=== PATIENT | male | born 1970 | race Caucasian/White ===

== ENCOUNTER 2016-11-15 08:30 | Observation (INO) | payer MEDICARE ==
[~2016-11-15] VITALS: Ht 170.2 cm; Wt 82.8 kg
[2016-11-25] MEDS ORDERED: LISI2.5T3 PO (13:36)
[2016-11-25] MEDS ORDERED: LEVO125T4 PO (13:36)
[2016-11-25] MEDS ORDERED: SIMV5TAB3 PO (13:36)
[2016-11-25] MEDS ORDERED: RISP2TAB2 PO ×2 (13:55)
[2016-11-29] MEDS ORDERED: METOPROLOL TARTRATE 25 MG TAB PO PRN (06:45)
[2016-11-29] MEDS ORDERED: INSULIN HUMAN REGULAR 1,000 UNITS/10 ML VIAL SQ PRN (06:45)
[2016-11-29] MEDS ORDERED: LACTATED RINGER'S 1000 ML IV PRN (06:45)
[2016-11-29] MEDS ORDERED: SODIUM CHLORID 0.9% 500 ML IV PRN (06:45)
[2016-11-29] MEDS ORDERED: CHLORHEXIDINE GLUCONATE 2 % 1 PACK (2 CLOTHS) TOPICAL PRN (06:45)
[2016-11-29] MEDS ORDERED: POVIDONE IODINE 5% (ANTISEPSIS KIT) 4 APPLICATIONS EACH NARE PRN (06:45)
[2016-11-29] MEDS ORDERED: ceFAZolin 2 GM PREMIX 50 ML IV SCH (06:45)
[2016-11-29] MEDS ORDERED: LISI-515 PO (07:07)
[2016-11-29] MEDS ORDERED: PRAV40TA2 PO (07:07)
[2016-11-29 07:09] VITALS: BP 134/93; PULSE 92; RESP 18; TEMP 97.6; O2SAT 97
[2016-11-29] MEDS ORDERED: BACITRACIN TOP OINT 15 GM TUBE ONE (07:28)
[2016-11-29] MEDS ORDERED: LIDOCAINE 1%/EPINEPHrine 1:100,000 SOLN 20 ML VIAL ONE (07:28)
[2016-11-29] MEDS ORDERED: SODIUM BICARBONATE 8.4% INJ 50 ML ONE (07:29)
[2016-11-29] MEDS ORDERED: LIDOCAINE HCL 2% 50 ML VIAL ONE (07:45)
[2016-11-29 07:48] LABS: AUTOMATED NEUTROPHIL # 4.8 TH/MM3 (1.8-7.7); BASOPHIL % 0.3 % (0.0-2.0); EOSINOPHIL # 0.3 TH/MM3 (0-0.4); EOSINOPHIL % 4.8 % (0.0-4.0); HEMATOCRIT 41.4 % (39.0-51.0); HEMO FLAGS DIFF FINAL; LYMPHOCYTE # 0.7 TH/MM3 (1.0-4.8); MEAN CORPUSCULAR HEMOGLOBIN 30.5 PG (27.0-34.0); MONO % 11.2 % (0.0-8.0); NEUT % 73.7 % (16.0-70.0); PLATELET COUNT 244 TH/MM3 (150-450); RED BLOOD COUNT 4.76 MIL/MM3 (4.50-5.90); RED CELL DISTRIBUTION WIDTH 12.6 % (11.6-17.2); WHITE BLOOD COUNT 6.5 TH/MM3 (4.0-11.0)
[2016-11-29 08:15] LABS: BICARBONATE 26.8 MEQ/L (21.0-32.0)
[2016-11-29 08:21] LABS: POTASSIUM 4.4 MEQ/L (3.5-5.1)
[2016-11-29] MEDS ORDERED: BUPIVACAINE/EPINEPHRINE 0.25% 50 ML VIAL INFIL ONE (08:55)
[2016-11-29] MEDS ORDERED: Post-op Orders (for Pharmacy) MISC XX ONE (10:31)
[2016-11-29] MEDS ORDERED: DO NOT ADM ANY ANTICOAGULANT DRUGS PRN (10:36)
[2016-11-29] MEDS ORDERED: MIDAZOLAM HCL 2 MG/2 ML VIAL ONE (10:40)
[2016-11-29] MEDS ORDERED: fentaNYL CITRATE 250 MCG/5 ML AMP ONE (10:41)
[2016-11-29] MEDS ORDERED: *RESP: ALBUTEROL 2.5 MG/3 ML NEB (PRN) PERIprocedural Use ONLY NEB ONE (11:24)
[2016-11-29] MEDS ORDERED: SODIUM CHLORIDE 0.9% FLUSH 10 ML FLUSH IV FLUSH PRN (12:30)
[2016-11-29] MEDS ORDERED: SODIUM CHLORIDE 0.9% FLUSH 10 ML FLUSH IV FLUSH SCH (12:30)
[2016-11-29] MEDS ORDERED: ACETAMINOPHEN/HYDROcodone 325 MG/5 MG TAB PO PRN (12:30)
[2016-11-29] MEDS ORDERED: MORPHINE SULFATE 4 MG/ML INJ IV PRN (12:30)
[2016-11-29] MEDS ORDERED: ONDANSETRON HCL 4 MG/2 ML VIAL IV PRN (12:30)
[2016-11-29] MEDS ORDERED: IBUPROFEN 600 MG TAB PO PRN (12:30)
[2016-11-29] MEDS ORDERED: PROPOFOL 200 MG/20 ML AMP IV ONE (14:44)
[2016-11-29] MEDS ORDERED: ePHEDrine/NS 25 MG/5 ML SYR IV ONE (14:44)
[2016-11-29] MEDS ORDERED: ONDANSETRON HCL 4 MG/2 ML VIAL IV PUSH ONE (14:45)
[2016-11-29] MEDS ORDERED: PHENYLEPH/NS 1000 MCG/10 ML SYR IV ONE (14:45)
[2016-11-29] MEDS ORDERED: NEOSTIGMINE METHYLSULFATE 10 MG/10 ML VIAL IV PUSH ONE (14:45)
--- NOTE | 2016-11-29 15:00 | EKG ---
Date Performed: 11/29/2016 Time Performed: 07:07:28 PTAGE: 46 years EKG: Sinus rhythm NORMAL ECG PREVIOUS TRACING : 10/01/2010 06.50 DOCTOR: Barbara Oleary Interpretating Date/Time 11/29/2016 14:55:51
[2016-11-29 17:00] VITALS: BP 148/89; PULSE 133; RESP 19; TEMP 96.6; O2SAT 92
[2016-11-29 20:00] VITALS: BP 125/67; PULSE 117; RESP 17; TEMP 97.9; O2SAT 93
[2016-11-30] VITALS: BP 132/82; PULSE 106; RESP 18; TEMP 97.3; O2SAT 93
[2016-11-30 04:00] VITALS: BP 128/74; PULSE 97; RESP 18; TEMP 97; O2SAT 97
[2016-11-30 08:00] VITALS: BP 135/83; PULSE 97; RESP 16; TEMP 95.3; O2SAT 94
[2016-11-30 11:58] VITALS: BP 141/87; PULSE 100; RESP 17; TEMP 95.7; O2SAT 93
--- NOTE | 2016-12-01 17:16 | MP ---
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 Sisi Cárdenas BRICKMASON SUPERVISOR Dr. Carlos Vera MD COMPLICATIONS None BLOOD LOSS Less than 10 mL FINDINGS One significantly enlarged pathologic appearing lymph node in level II lymph node basin. All palpable lymph nodes removed from level two and three. INDICATIONS FOR PROCEDURE The patient is a 46-year-old male with history of well differentiated thyroid cancer with multiple distant and regional recurrences. The patient undergoing continued treatment by radiation oncology, however, due to a large bulky lymph node with metastasis in the left cervical area the referral for resection was indicated due to the local control as well as to debulk the cancer for planned radiation. Risks, benefits, alternatives to selective left cervical lymphadenectomy were discussed with the patient in detail as well as the patient's power of real estate attorney. Medical decision making prior to the procedure. PROCEDURE IN DETAIL The patient was taken to the operating room, placed in supine position, placed under general endotracheal anesthesia. The patient was placed in a head-up position and neck roll was placed. We prepped and draped the left neck and chest wall in sterile fashion. Time-out was performed. We made an incision along the skin crease. It was a horizontal incision approximately 5 cm long with a 15 blade scalpel. I used the Bovie electrocautery to dissect through the subcutaneous tissue and open platysma flaps and elevated these superiorly and inferiorly. We placed self retractors at this time. We were able to dissect through some minimal scar tissue from the previous operation and dissect the SCM free from the carotid sheath in the surrounding material. We did identify the great auricular nerve and this was retracted out of our field and not divided. We then note a large lymph node. Again this was in the lymphatic tissue in level two and three external and lateral to the jugular vein and carotid artery but medial to the SCM. We dissected this out using 4-0 Vicryl ties as well as Bovie electrocautery and Metzenbaum scissors. Once we had completely resected this britany packet, there is no other visible britany tissue in level II and III. We had excellent hemostasis spontaneously. We irrigated out until suctioning was clear. We did place Surgicel into the resection bed. All so turned back to normal anatomic position. We closed the platysma with [id number] 3-0 Vicryl sutures. We closed the skin with deep dermal 3-0 Vicryl and 4-0 Monocryl and Dermabond. The patient was discontinued frp, anesthesia, taken to the PACU in stable condition. The patient tolerated the procedure well. No apparent complications. All counts were correct and I was present and scrubbed for the entire procedure. MD CHOCO Riggins/ /10:59 AM /4:50 PM
== END 2016-11-30 12:35 | disposition home or self-care (01) ==
LOC: HSDI 11-29 06:14 → UNDOADMIN 11-29 06:14 → EDSTATUS 11-29 08:30 → INTOOBSV 11-29 12:33 → HSDI 11-29 12:33 → N07A 11-29 17:00 → HSDI 11-29 17:00 → UNDODISIN 11-30 12:35
PROVIDERS: ADMIT Surgery; ATTEND Surgery
PROC: 07B20ZZ Excision of Left Neck Lymphatic, Open Approach (ICD-10-PCS; principal; 2016-11-29 08:16)
DX: C77.9 Secondary and unspecified malignant neoplasm of lymph node, unspecified (principal); C73 Malignant neoplasm of thyroid gland; I10 Essential (primary) hypertension; E78.5 Hyperlipidemia, unspecified; E03.9 Hypothyroidism, unspecified; Z79.899 Other long term (current) drug therapy
CPT/HCPCS: 00320; 38510; 80048; 85025; 88305; 93005; 94150; 94664; G0378; J0690; J2250; J2370; J2405; J2710; J3010; J7120; J7613